=== PATIENT | male | born 2000 | race Hispanic/Latino ===

== ENCOUNTER 2018-05-28 21:15 | Emergency (ER) | payer OTHER, MEDICAID, SELFPAY ==
[2018-05-28 21:55] VITALS: BP 121/60; PULSE 74; RESP 14; TEMP 37; O2SAT 99; BMI 22.9
--- NOTE | 2018-05-28 22:05 | ED_ITS ---
HPI - Male Genitourinary General Chief complaint: Urogenital-Male Stated complaint: URGENCY, PAIN WITH URINATION Time Seen by Provider: 05/28/18 22:05 Source: patient Mode of arrival: ambulatory Limitations: no limitations History of Present Illness HPI Narrative: Patient is an otherwise healthy 17-year-old male here for evaluation urinary frequency, urgency, hesitation and dysuria. States has been going on for the past 1-2 days. No fevers. No prior history of urinary tract infections. No prior history of sexually transmitted diseases. Last sexual encounter was 2 months ago. No rashes. Has not tried anything for prior to arrival Related Data Previous Rx's Medication Instructions Recorded oseltamivir [Tamiflu] 75 mg OR BID #10 cap 02/21/17 sulfamethoxazole-trimethoprim 1 tab PO BID 3 Days #6 tab 05/29/18 [Bactrim DS] Allergies Allergy/AdvReac Type Severity Reaction Status Date / Time No Known Drug Allergies Allergy Verified 05/28/18 22:08 Review of Systems Constitutional Denies fever(s) Cardiovascular Denies chest pain and Denies dyspnea Respiratory Denies dyspnea Gastrointestinal Gastrointestinal: Denies abdominal pain, Denies nausea and Denies vomiting Genitourinary Reports dysuria, Denies penile discharge, Denies testicular pain, Reports urinary frequency, Reports urinary hesitancy, Denies urinary incontinence and Reports urinary urgency Integumentary/Breasts Denies rash PFSH Medical History Healthy adult (Acute) Surgical History No history of previous surgery (Acute) Social History Smoking Status: Never smoker Exam Initial Vital Signs Initial Vital Signs: Vital Signs Temperature 98.6 F 05/28/18 21:55 Pulse Rate 74 05/28/18 21:55 Respiratory Rate 14 05/28/18 21:55 Blood Pressure 121/60 05/28/18 21:55 Pulse Oximetry 99 05/28/18 21:55 Const General: cooperative, healthy appearing, comfortable, well developed, well groomed and No acute distress Orientation: alert, awake and oriented x3 HENMT Head: normal to inspection and normocephalic Cardio Rate: regular rate Rhythm: regular rhythm GI Inspection: non-distended Palpation: soft, No firm and No tender Other: Circumcised Skin Lesions: no lesions Rashes: no rashes Neuro General: alert, awake and oriented x3 Extrem General: normal to inspection and capillary refill normal Psych Appearance: grossly normal and well kempt Course Orders Ordered: ED Orders 05/28/18 22:00 Urine Chlamydia Gonorrhea PCR Stat Urine Culture Stat Urine Microscopic Stat Vital Signs - 8 hr 05/28/18 21:55 Temperature 98.6 F Pulse Rate 74 Respiratory Rate 14 Blood Pressure 121/60 Pulse Oximetry 99 MDM - Male Genitourinary Lab Data Attestation: I reviewed the patient's lab results. Lab Results 05/28/18 05/28/18 Range/Units 22:00 22:00 Urine RBC None seen (0-5/HPF) Urine WBC 10-30/hpf H (0-5/HPF) Ur Squamous Epith Cells None seen Urine Bacteria None seen (None) Ur Culture Indicated? Specimen cultured Micro UA Comment Not Reportable Ur Chlamydia DNA (PCR) Not detected N gonorrhoeae DNA (PCR) Not detected Urine Dip Bedside Urine Glucose Negative Bedside Urine Bilirubin - Negative Bedside Urine Ketone - Negative Urine Specific [place] 1.030 Bedside Urine Occult Blood - Negative Bedside Urine pH 6.0 Bedside Urine Protein +/- 15 Bedside Urine Urobilinogen - Negative Bedside Urine Nitrite - Negative Bedside Urine Leukocytes +/- 15 Esterase MDM Narrative Medical decision making narrative: Patient's history and labs consistent with a urinary tract infection. He has no prior history of urinary tract infections. After discussion he was willing to stay around to have gonorrhea and chlamydia checked which eventually resulted as nondetected. Will send home with a prescription for Bactrim. He was given return precautions. Informed him he needed to make contact the primary care doctor to discuss further workup has urinary tract infections and men are not impossible but uncommon. I did discuss this with him. He expressed understanding and agreement with plan. Discharge Plan Departure Patient Disposition: Home Clinical Impression: Urinary tract infection Instructions: DI for Urinary Tract Infection (UTI) Activity Restrictions/Additional Instructions: I do recommend you make contact with a primary care doctor to discuss further workup. Take the antibiotics as directed. Return to the emergency department for any new or worsening symptoms Prescriptions: New sulfamethoxazole-trimethoprim [Bactrim DS] 800-160 mg tablet 1 tab PO BID 3 Days Qty: 6 RF: 0 No Action oseltamivir [Tamiflu] 75 MG capsule 75 mg OR BID Qty: 10 RF: 0
[2018-05-28 22:25] LABS: Bacteria Urine None Seen; RBC Urine None Seen (0-5/HPF)
[2018-05-28 22:43] LABS: Culture Indicated Urine Specimen Cultured; Squamous Epithelial Cell Urine None Seen; WBC Urine 10-30/HPF (0-5/HPF)
[2018-05-29 00:41] LABS: Urine N gonorrhoeae NOT DETECTED
[2018-05-29 01:06] LABS: Urine Chlamydia NOT DETECTED
[2018-05-29 01:23] VITALS: BP 106/66; PULSE 68; RESP 16; TEMP 36.7; O2SAT 99
== END 2018-05-29 01:24 | disposition home or self-care (01) ==
PROVIDERS: Emergency Provider Emergency Medicine
DX: N39.0 Urinary tract infection, site not specified (principal)
CPT/HCPCS: 81003; 81015; 87086; 87491; 87591; 99282; 99283

== ENCOUNTER 2022-02-20 20:22 | Emergency (ER) | payer OTHER, MEDICAID, SELFPAY ==
[2022-02-20 21:25] VITALS: BP 135/90; PULSE 89; RESP 18; TEMP 36.7; O2SAT 96; BMI 24.4
--- NOTE | 2022-02-20 21:35 | DI.RAD.S_ITS ---
PROCEDURE: XR CHEST 2V INDICATIONS: cough, chest tightness x 10 days, productive cough TECHNIQUE: 2 views of the chest were acquired. COMPARISON: [facility], , CHEST 2 VIEW, 12/22/2016, 15:56. FINDINGS: Surgical changes and devices: None. Lungs and pleura: Lungs are clear. No pleural effusions or pneumothorax. Mediastinum: Mediastinal contours are normal. Heart size is normal. Bones and chest wall: No suspicious bony abnormalities. Soft tissues appear unremarkable. IMPRESSION: 1. No acute cardiopulmonary disease. Dictated by: Kartik Duque M.D. on 02/20/2022 at 23:13 Approved by: Kartik Duque M.D. on 02/20/2022 at 23:13
[2022-02-20 21:59] LABS: COVID19 -Nasal RAPID Negative (Negative)
[2022-02-21 00:16] VITALS: BP 122/77; PULSE 78; RESP 18; TEMP 36.8; O2SAT 98
--- NOTE | 2022-02-21 01:11 | ED.GENADULT ---
HPI - General Adult General Chief complaint: Upper Respiratory Symptoms Stated complaint: Tighness of chest cough sore throat Time Seen by Provider: 02/21/22 00:45 Source: patient Mode of arrival: Ambulatory History of Present Illness HPI narrative: Otherwise healthy 21-year-old male who is here for evaluation of a couple days of a cough and tightness in his chest and a sore throat. Related Data Previous Rx's Medication Instructions Recorded prednisone 20 mg tablet 20 mg PO DAILY 4 days #4 tabs 02/21/22 Allergies Allergy/AdvReac Type Severity Reaction Status Date / Time No Known Drug Allergies Allergy Verified 06/09/18 15:40 Review of Systems Constitutional Constitutional: Reports system reviewed and no additional complaints, except as documented ENT Ears, Nose, Mouth, and Throat: Reports system reviewed and no additional complaints, except as documented Respiratory Respiratory: Reports system reviewed and no additional complaints, except as documented Integumentary/Breasts Skin/Breast: Reports system reviewed and no additional complaints, except as documented Patient History Medical History Healthy adult Surgical History (Updated 05/29/18 @ 01:21 by Tyler Aggarwal DO) No history of previous surgery Social History Smoking Status: Never smoker Smoking Status: Never smoker alcohol intake frequency: holidays/special occasions only Substance Use Type: does not use Exam Initial Vital Signs Initial Vital Signs: Vital Signs Temperature 98.1 F 02/20/22 21:25 Pulse Rate 89 02/20/22 21:25 Respiratory Rate 18 02/20/22 21:25 Blood Pressure 135/90 02/20/22 21:25 Pulse Oximetry 96 02/20/22 21:25 Oxygen Delivery Method 02/20/22 21:25 Const General: cooperative and healthy appearing Resp Effort & Inspection: normal respiratory effort Auscultation: clear to auscultation bilaterally Cardio Rate: regular rate Skin General: no rashes or lesions noted Neuro General: patient alert and patient awake Course Orders Ordered: ED Orders 02/20/22 21:33 COVID19 -Nasal RAPID/Pre-Proc Stat 02/20/22 21:35 XR chest 2V Stat Discontinued Medications Prednisone (Prednisone 20 Mg Prepack) 1 bottle MISC SEEINSTR ONE Stop: 02/21/22 01:18 Prednisone (Prednisone 20 Mg Tablet) 20 mg PO NOW ONE Stop: 02/21/22 01:25 Last Admin: 02/21/22 01:37 Dose: 20 mg Documented By: PRASHANTH Vital Signs Vital signs: Vital Signs - 8 hr 02/20/22 21:25 02/21/22 00:16 Temperature 98.1 F 98.3 F Pulse Rate 89 78 Respiratory Rate 18 18 Blood Pressure 135/90 122/77 Pulse Oximetry 96 98 Oxygen Delivery Method Room Air Room Air Medical Decision Making Lab Data Lab results reviewed: Yes I reviewed the patient's lab results. Labs: Lab Results 02/20/22 Range/Units 21:33 SARS-CoV-2 (PCR) Negative (Negative) Imaging Data Chest x-ray: Radiologist's Impression: [address] [address] XRay Report Signed Patient: Maximino Lomas MR#: [id number] : 2000 Acct:[id number] Age/Sex: 21 / M Date of Service: 02/20/22 Loc: ED Accession Number: [id number] ?? Procedure: XR chest 2V Ordering Provider: Tyler Aggarwal D.O. PROCEDURE:? XR CHEST 2V ? INDICATIONS:? cough, chest tightness x 10 days, productive cough ? TECHNIQUE:? 2 views of the chest were acquired.? ? COMPARISON:? [facility], CHEST 2 VIEW, 12/22/2016, 15:56. ? FINDINGS:? ? Surgical changes and devices:? None.? ? Lungs and pleura:? Lungs are clear.? No pleural effusions or pneumothorax.? ? Mediastinum:? Mediastinal contours are normal.? Heart size is normal.? ? Bones and chest wall:? No suspicious bony abnormalities.? Soft tissues appear unremarkable.? ? IMPRESSION:? ? 1.? No acute cardiopulmonary disease. ? ? ? Dictated by: Kartik Duque M.D. on 02/20/2022 at 23:13 ? ? Approved by: Kartik Duque M.D. on 02/20/2022 at 23:13 MDM Narrative Medical decision making narrative: Not hypoxic. Clear lungs. No respiratory distress. Findings consistent with bronchitis. Patient was given return precautions and follow-up instructions. He expressed understanding and agreement. Discharge Plan Departure Patient Disposition: Home Clinical Impression: Bronchitis Instructions: DI for Acute Bronchitis Activity Restrictions/Additional Instructions: I do recommend that you take the steroids as directed. It was electronically transmitted to [employer]. You can try some [id number] cough and cold preparations. Be sure to take them as they are directed on the package. Return to the emergency department for any new worsening symptoms. Prescriptions: New prednisone 20 mg tablet 20 mg PO DAILY 4 Days Qty: 4 0RF Visit Report Forms: Patient Portal/API
[2022-02-21] MEDS: predniSONE 20 MG TABLET PO (01:37)
== END 2022-02-21 01:40 | disposition home or self-care (01) ==
PROVIDERS: Emergency Provider Emergency Medicine
DX: J40 Bronchitis, not specified as acute or chronic (principal); Z20.822 Contact with and (suspected) exposure to COVID-19
CPT/HCPCS: 71046; 87635; 99283; C9803

== ENCOUNTER → 2025-01-16 16:17 | Outpatient (CLI) | payer OTHER, MEDICAID, SELFPAY ==
--- NOTE | 2025-01-16 16:21 | DI.RAD.S_ITS ---
PROCEDURE: XR TOE LT MIN 2V INDICATIONS: Rule out fracture TECHNIQUE: 3 views of the left 1st toe(s) acquired. COMPARISON: None. FINDINGS: Bones: No fractures or dislocations. No suspicious bony lesions. Soft tissues: No suspicious soft tissue densities. IMPRESSION: No acute bony abnormality. Dictated by: Vinayak Thomas M.D. on 01/17/2025 at 20:56 Approved by: Vinayak Thomas M.D. on 01/17/2025 at 20:57
== END ==
LOC: RAD 16:19
PROVIDERS: Referring Provider Chiropractor; Visit Provider Chiropractor
DX: S90.112A Contusion of left great toe without damage to nail, initial encounter (principal); X58.XXXA Exposure to other specified factors, initial encounter
CPT/HCPCS: 73660

== ENCOUNTER 2025-02-13 09:36 | Emergency (ER) | payer OTHER, SELFPAY ==
--- NOTE | 2025-02-13 10:07 | ED.UPPEXIN ---
HPI - Extremity Injury (Upper) General Chief Complaint: Extremity Injury, Upper Stated Complaint: swollen Middle right finger 3 days Time Seen by Provider: 02/13/25 09:39 Source: patient Mode of arrival: Ambulatory History of Present Illness HPI narrative: 24-year-old gentleman presents with middle finger pain and swelling started a few days ago. He kayaks but does not recall any inciting event or trauma that caused this. He denies fever, chills, body aches, numbness, tingling, down the arm or fingers. Other than what is stated 14 point review of system is negative. Related Data Previous Rx's ?Medication ?Instructions ?Recorded sulfamethoxazole 800 1 tab PO BID #14 tabs 02/13/25 mg-trimethoprim 160 mg tablet (Bactrim DS) Allergies Allergy/AdvReac Type Severity Reaction Status Date / Time No Known Drug Allergies Allergy Verified 02/13/25 09:59 Review of Systems Review of Systems ROS Unobtainable: All systems reviewed & are unremarkable except as noted in HPI and below Patient History Medical History Healthy adult Surgical History (Updated 05/29/18 @ 01:21 by Tyler Aggarwal DO) No history of previous surgery Social History Smoking Status: Never smoker Smoking Status: Never smoker alcohol intake frequency: holidays/special occasions only Exam Narrative Exam Narrative: GENERAL: [24] year old patient appears stated age. Well-developed patient, in mild distress. HEAD: Atraumatic. Normocephalic. EYES: Pupils equal round and reactive. Extraocular motions intact. No scleral icterus. No injection or drainage. EXTREMITIES: R middle finger - paronychia with min fluctance but redness, warmth, ttp, motor/sensory intact +2 rad pulse cap refill <2secs BACK: Nontender without deformity or crepitance. No flank tenderness. NEURO: AOx3. SKIN: No rash or erythema of visible areas MDM - Extremity Injury (Upper) MDM Narrative Medical decision making narrative: Vital signs, nurse triage note, medication list, previous ER visits, and all imaging studies reviewed. Patient clearly has paronychia but at this point red and angry with minimal fluctuance felt it was best to start on antibiotics and soak in hot water 3 times a day be re-evaluated the next 24-72 hours for incision and drainage and to start on Bactrim at this point. Differential diagnosis includes felon, paronychia, cellulitis, MRSA. Discharge Plan Departure Patient Disposition: Home Clinical Impression: Paronychia Instructions: DI for Paronychia Activity Restrictions/Additional Instructions: Return with new or worsening symptoms. Take your medicines directed. Please follow up in ER for wound recheck in 24-72 hours for possible incision and drainage. Prescriptions: New sulfamethoxazole-trimethoprim [Bactrim DS] 800-160 mg tablet 1 tab PO BID Qty: 14 0RF Referrals: Miscellaneous,Doctor, [Primary Care Provider, Medical] Stand Alone Forms: Patient Portal/API
[2025-02-13] MEDS: IBUPROFEN 400 MG TABLET 800 MG PO (10:18)
[2025-02-13] MEDS: TRIMETH/SULFA 160/800 (DS) TABLET 1 TAB PO (10:18)
[2025-02-13] MEDS: ACETAMINOPHEN 325 MG TABLET 650 MG PO (10:19)
[2025-02-13 10:24] VITALS: BP 110/78; PULSE 66; RESP 19; TEMP 36.4
== END 2025-02-13 10:24 | disposition home or self-care (01) ==
PROVIDERS: Emergency Provider Family Medicine
DX: L03.011 Cellulitis of right finger (principal)
CPT/HCPCS: 99283

== ENCOUNTER 2025-02-16 11:14 | Emergency (ER) | payer OTHER, SELFPAY ==
[2025-02-16 11:22] VITALS: BP 131/64; PULSE 63; RESP 20; O2SAT 100; BMI 24.3
--- NOTE | 2025-02-16 11:29 | ED.SKABFB ---
HPI - Skin/Abscess/Foreign Bdy <Laura Smith PA-C - Last Filed: 02/16/25 14:20> General Chief complaint: Skin/Abscess/Foreign Body Stated complaint: return to drain right middle finger Time Seen by Provider: 02/16/25 11:29 Source: patient Mode of arrival: Ambulatory Limitations: no limitations History of Present Illness HPI narrative: Initial contact with this gentleman was made in triaged, I reviewed his medical records, he apparently left without being seen. Related Data Previous Rx's ?Medication ?Instructions ?Recorded sulfamethoxazole 800 1 tab PO BID #14 tabs 02/13/25 mg-trimethoprim 160 mg tablet (Bactrim DS) doxycycline monohydrate 100 mg 100 mg PO BID #20 caps 02/20/25 capsule Allergies Allergy/AdvReac Type Severity Reaction Status Date / Time No Known Drug Allergies Allergy Verified 02/20/25 20:28 Patient History <Laura Smith PA-C - Last Filed: 02/16/25 14:20> Medical History Healthy adult Surgical History (Updated 05/29/18 @ 01:21 by Tyler Aggarwal DO) No history of previous surgery Social History Smoking Status: Never smoker Smoking Status: Never smoker alcohol intake frequency: holidays/special occasions only Exam <DORY Burk Last Filed: 02/16/25 14:20> Initial Vital Signs Initial Vital Signs: Vital Signs Pulse Rate 63 02/16/25 11:22 Respiratory Rate 20 02/16/25 11:22 Blood Pressure 131/64 02/16/25 11:22 Pulse Oximetry 100 02/16/25 11:22 Oxygen Delivery Method Room Air 02/16/25 11:22 <Regina Matias DO - Last Filed: 02/23/25 09:44> Initial Vital Signs Initial Vital Signs: Vital Signs Pulse Rate 63 02/16/25 11:22 Respiratory Rate 20 02/16/25 11:22 Blood Pressure 131/64 02/16/25 11:22 Pulse Oximetry 100 02/16/25 11:22 Oxygen Delivery Method Room Air 02/16/25 11:22 Course <Laura Smith PA-C - Last Filed: 02/16/25 14:20> Orders Ordered: Discontinued Medications Lidocaine HCl (Lidocaine 1% 20 Ml) 20 ml INJ INTRA-OP ONE Stop: 02/16/25 12:37 Vital Signs Vital signs: Vital Signs - 8 hr 02/16/25 11:22 Pulse Rate 63 Respiratory Rate 20 Blood Pressure 131/64 Pulse Oximetry 100 Oxygen Delivery Method Room Air <Regina Matias DO - Last Filed: 02/23/25 09:44> Orders Ordered: Discontinued Medications Lidocaine HCl (Lidocaine 1% 20 Ml) 20 ml INJ INTRA-OP ONE Stop: 02/16/25 12:37 Vital Signs Vital signs: Vital Signs - 8 hr 02/16/25 11:22 Pulse Rate 63 Respiratory Rate 20 Blood Pressure 131/64 Pulse Oximetry 100 Oxygen Delivery Method Room Air MDM - Skin/Abscess/Foreign Bdy <Laura Smith PA-C - Last Filed: 02/16/25 14:20> MDM Narrative Medical decision making narrative: Initial contact was performed at triaged, he left without being seen. Review of his records indicated a paronychia involving his right middle finger he is currently on a course of Bactrim DS b.i.d. for 14 days, he was initially seen in the emergency department on February 13. He was denying pain at triaged, he states he returned as he was following his follow up instructions. I am hopeful that he will come back later today. Discharge Plan Departure Patient Disposition: Left Without Being Seen Clinical Impression: Patient left before evaluation by physician, Paronychia Prescriptions: No Action sulfamethoxazole-trimethoprim [Bactrim DS] 800-160 mg tablet 1 tab PO BID Qty: 14 0RF doxycycline monohydrate 100 mg capsule 100 mg PO BID Qty: 20 0RF ED Sign-out <Regina Matias DO - Last Filed: 02/23/25 09:44> Cosign ED Attending Cosignature Attestation: Patient never seen evaluated or discussed with me
== END 2025-02-16 13:20 | disposition left against medical advice (07) ==
PROVIDERS: Emergency Provider Physician Assistant Medical
DX: Z53.21 Procedure and treatment not carried out due to patient leaving prior to being seen by health care provider (principal)
CPT/HCPCS: 99281

== ENCOUNTER 2025-02-20 20:16 | Emergency (ER) | payer OTHER, SELFPAY ==
[2025-02-20 20:28] VITALS: BP 115/68; PULSE 67; RESP 18; TEMP 37.2; O2SAT 97; BMI 24.3
--- NOTE | 2025-02-20 22:24 | ED.SKABFB ---
HPI - Skin/Abscess/Foreign Bdy General Chief complaint: Skin/Abscess/Foreign Body Stated complaint: rt middle finger infection, seen a few weeks ago Time Seen by Provider: 02/20/25 22:01 Source: patient Mode of arrival: Family Vehicle Limitations: no limitations History of Present Illness HPI narrative: Patient is seen here 7 days ago for paronychia of the right middle finger cuticle area. Patient was placed on Bactrim and just finished today without improvement. However has not gotten worse. No drainage. No fluctuance. Patient is right handed. Related Data Previous Rx's ?Medication ?Instructions ?Recorded sulfamethoxazole 800 1 tab PO BID #14 tabs 02/13/25 mg-trimethoprim 160 mg tablet (Bactrim DS) doxycycline monohydrate 100 mg 100 mg PO BID #20 caps 02/20/25 capsule Allergies Allergy/AdvReac Type Severity Reaction Status Date / Time No Known Drug Allergies Allergy Verified 02/20/25 20:28 Review of Systems Review of Systems Narrative: GENERAL: Negative chills, fatigue, malaise, fever, sweats. HEENT: Negative sinus pain, ear pain, sore throat RESPIRATORY: Negative dyspnea, cough CARDIOVASCULAR: Negative chest pain, palpitations GASTROINTESTINAL: Negative vomiting, nausea, abdominal pain : Negative dysuria, frequency, hematuria MUSCULOSKELETAL: Negative muscle or bony pain SKIN: Negative rash, skin lesions, positive skin color change NEUROLOGIC: Negative weakness, numbness ROS Unobtainable: All systems reviewed & are unremarkable except as noted in HPI and below Patient History Medical History Healthy adult Surgical History (Updated 05/29/18 @ 01:21 by Tyler Aggarwal DO) No history of previous surgery Social History Smoking Status: Never smoker Smoking Status: Never smoker alcohol intake frequency: holidays/special occasions only Exam Narrative Exam Narrative: GENERAL: in no distress, not toxic not dyspneic HEAD: Normocephalic. EYES: Pupils equal round EXTREMITIES: No gross deformities. Examination right middle finger. There is edema to the cuticle area but no fluctuance. No areas of fluctuance to incise and drain. No necrotic tissue. No crepitus. Patient able to flex and extend at the MCP PIP and the IP joints. NEURO: AOx4. Clear speech SKIN: Warm and dry PSYCH: Not anxious, is cooperative Initial Vital Signs Initial Vital Signs: Vital Signs Temperature 98.9 F 02/20/25 20:28 Pulse Rate 67 02/20/25 20:28 Respiratory Rate 18 02/20/25 20:28 Blood Pressure 115/68 02/20/25 20:28 Pulse Oximetry 97 02/20/25 20:28 Oxygen Delivery Method Room Air 02/20/25 20:28 Course Orders Ordered: Discontinued Medications Doxycycline Hyclate (Doxycycline Hyclate 100 Mg Tablet) 100 mg PO NOW ONE Stop: 02/20/25 22:28 Last Admin: 02/20/25 22:47 Dose: 100 mg Documented By: CORAZON Vital Signs Vital signs: Vital Signs - 8 hr 02/20/25 20:28 Temperature 98.9 F Pulse Rate 67 Respiratory Rate 18 Blood Pressure 115/68 Pulse Oximetry 97 Oxygen Delivery Method Room Air MDM - Skin/Abscess/Foreign Bdy MDM Narrative Medical decision making narrative: Patient is seen here 7 days ago for paronychia of the right middle finger cuticle area. Patient was placed on Bactrim and just finished today without improvement. However has not gotten worse. No drainage. No fluctuance. Patient is right handed. MDM After history and exam, no blood work or imaging indicated. There is no fluctuance for incision and drainage. Doxycycline will be started. Differential considered: Includes but not limited to paronychia Medical records reviewed: February 13, 2025 ER visit here. Re-evaluations: 10:30 p.m.. Reviewed with patient exam findings and treatment plan. He does agree and understand no incision drainage at this time as there is no fluctuance. Return precautions reviewed. They desire discharge home Discussion: Appropriate for discharge home. Exam is reassuring. Return precautions reviewed with patient. Doxycycline has been started. Return precautions reviewed. He desires discharge home. Diagnosis: Paronychia Discharge Plan Departure Patient Disposition: Home Clinical Impression: Paronychia Instructions: DI for Paronychia Activity Restrictions/Additional Instructions: Please continue Epsom salt soaks to your finger. Please see family doctor return here in a week for re-evaluation. New antibiotic has been started and I and sent to your pharmacy to continue in the morning. Please call provided primary care provider phone number to obtain family doctor, . Return if worse if any questions or concerns Prescriptions: New doxycycline monohydrate 100 mg capsule 100 mg PO BID Qty: 20 0RF No Action sulfamethoxazole-trimethoprim [Bactrim DS] 800-160 mg tablet 1 tab PO BID Qty: 14 0RF Referrals: Miscellaneous,Doctor, MD [Primary Care Provider, Medical] Stand Alone Forms: Patient Portal/API
[2025-02-20] MEDS: DOXYCYCLINE HYCLATE 100 MG TABLET PO (22:47)
[2025-02-20 22:50] VITALS: BP 111/68; PULSE 61; RESP 16; TEMP 36.6; O2SAT 97
== END 2025-02-20 22:51 | disposition home or self-care (01) ==
PROVIDERS: Emergency Provider Emergency Medicine
DX: L03.011 Cellulitis of right finger (principal)
CPT/HCPCS: 99283

== ENCOUNTER → 2025-03-13 09:22 | Outpatient (CLI) | payer OTHER, SELFPAY ==
[2025-03-13 11:07] LABS: Urine Chlamydia NOT DETECTED; Urine N gonorrhoeae NOT DETECTED
== END ==
PROVIDERS: Visit Provider Nurse Practitioner Family
DX: R68.89 Other general symptoms and signs (principal); Z11.3 Encounter for screening for infections with a predominantly sexual mode of transmission
CPT/HCPCS: 87210; 87491; 87591; 87798